=== PATIENT | male | born 1995 | race African-American/Black ===

== ENCOUNTER 2017-10-21 12:16 | Emergency (ER) | payer OTHER ==
[2017-10-21] MEDS ORDERED: NORCO, ANEXSIA 5/325MG TABLET (HYDROcodone/ACETAMINOPHEN) As Ordered (12:38)
== END 2017-10-21 15:45 | disposition home or self-care (01) ==
LOC: M ED 12:16
DX: S60.042A Contusion of left ring finger without damage to nail, initial encounter (principal); S60.415A Abrasion of left ring finger, initial encounter; W23.1XXA Caught, crushed, jammed, or pinched between stationary objects, initial encounter; Y92.139 Unspecified place military base as the place of occurrence of the external cause; Z87.891 Personal history of nicotine dependence
CPT/HCPCS: 73140

== ENCOUNTER 2017-12-26 21:06 | Emergency (ER) | payer OTHER ==
[2017-12-26 22:10] LABS: KETONE, URINE AUTO RFX NEGATIVE (NEGATIVE); LEUKOCYTE ESTERASE UR AUTO RFX NEGATIVE (NEGATIVE); MUCUS, URINE RFX SMALL (NEGATIVE); NITRITE, URINE AUTO RFX NEGATIVE (NEGATIVE); RBC, URINE AUTO RFX 1 /HPF (0-3); SPECIFIC GRAVITY UR AUTO RFX 1.028 (1.002-1.035); SQUAM EPITHELIAL CELL UR AURFX 0 /HPF (0-6); WBC, URINE AUTO RFX 2 /HPF (0-3)
[2017-12-26] MEDS: AZITHROMYCIN 250 MG TAB PO (23:09)
[2017-12-26] MEDS: cefTRIAXone SOD 250 MG VIAL (J0696) IM (23:09)
[2017-12-26 23:30] LABS: CHLAMYDIA DNA AMPLIFICATION POSITIVE (NEGATIVE); GC DNA AMPLIFICATION NEGATIVE (NEGATIVE)
[2017-12-28 10:28] LABS: HEPATITIS B SURFACE ANTIBODY POSITIVE (POSITIVE)
[2017-12-28 10:38] LABS: HEPATITIS B SURFACE ANTIGEN NEGATIVE (NEGATIVE)
[2017-12-28 11:04] LABS: HEPATITIS C VIRUS ABY INDEX 0.1 INDEX (<0.8)
[2017-12-28 11:06] LABS: HIV 1&2 SCREEN CENTAUR NEGATIVE (NEGATIVE)
== END 2017-12-26 23:15 | disposition home or self-care (01) ==
LOC: M ED 21:06
DX: Z20.2 Contact with and (suspected) exposure to infections with a predominantly sexual mode of transmission (principal)
CPT/HCPCS: J0696

== ENCOUNTER 2019-12-18 16:05 | Emergency (ER) | payer OTHER ==
[2019-12-18] MEDS ORDERED: ONDANSETRON 4MG/2ML VIAL As Ordered ONE (16:34)
[2019-12-18] MEDS ORDERED: diphenhydrAMINE 50MG/ML VIAL (J1200) As Ordered ONE (16:35)
[2019-12-18] MEDS ORDERED: KETOROLAC 30 MG/ML 1ML VIAL As Ordered ONE (16:35)
[2020-01-13 17:28] LABS: BASO % 0.3 % (0.0-1.0); EOS # 0.2 10^3/uL (0.0-0.5); EOS % 2.1 % (0.0-3.0); HEMATOCRIT 46.1 % (42.0-52.0); HEMOGLOBIN 15.9 g/dl (13.5-17.5); LYMPH # 2.6 10^3/uL (1.5-5.0); LYMPH % 37.5 % (24.0-44.0); MEAN CORPUSCULAR HEMOGLOBIN 29.4 pg (27.0-33.0); MEAN CORPUSCULAR HGB CONC 34.5 g/dl (32.0-36.5); MEAN CORPUSCULAR VOLUME 85.4 fl (80.0-96.0); MONO # 0.7 10^3/uL (0.0-0.8); MONO % 9.6 % (0.0-5.0); NEUTROPHILS # 3.5 10^3/uL (1.5-8.5); NEUTROPHILS % 50.2 % (36.0-66.0); PLATELET COUNT, AUTOMATED 268 10^3/uL (150-450)
[2020-01-13 17:29] LABS: ERYTHROCYTE SEDIMENTATION RATE 4 mm/hr (0-15)
[2020-01-24 10:09] LABS: GLUCOSE, FASTING 90 MG/DL (70-100)
[2020-01-24 10:10] LABS: ALT/SGPT 40 IU/L (0-32); BILIRUBIN,DIRECT < 0.1 MG/DL (0.0-0.2); BILIRUBIN,TOTAL 0.3 MG/DL (0.2-1.0); BLOOD UREA NITROGEN 10 MG/DL (7-18); CARBON DIOXIDE LEVEL 28 mmol/L (20-29); CHLORIDE LEVEL 107 MEQ/L (98-107); GLOMERULAR FILTRATION RATE > 60.0 (>60); POTASSIUM SERUM 4.5 MEQ/L (3.5-5.1); SODIUM LEVEL 140 MEQ/L (136-145); TOTAL PROTEIN 7.7 GM/DL (6.4-8.2)
[2020-01-24 10:11] LABS: ALBUMIN 3.8 GM/DL (3.2-5.2); C REACTIVE PROTEIN QUANTITATIV < 0.30 MG/DL (0.00-0.30); MAGNESIUM LEVEL 1.9 MG/DL (1.8-2.4)
--- NOTE | 2020-01-29 17:59 | REP ---
HEAD CT WITHOUT CONTRAST HISTORY: Migraines x2 weeks. This report was delayed due to a protracted episode of computer network disruption experienced by this facility. FINDINGS: Preliminary digital pin maker radiograph is unremarkable. Bone window settings demonstrate an intact bony calvarium. Visualized paranasal sinuses are clear. No intraorbital abnormality is seen. The lateral, third, and fourth ventricles are normal in size and position. Hickey-white differentiation pattern is intake. Incidental note is made of a 10 mm subarachnoid cyst in the superior cerebellar cistern region just below the tentorium. This is felt to be of no clinical significance. There is no evidence of intracranial hemorrhage, mass, infarction, extra-axial fluid collection, or midline shift. IMPRESSION: No acute intracranial abnormality. MTDD
== END 2019-12-18 18:55 | disposition home or self-care (01) ==
LOC: M ED 16:05
DX: G43.909 Migraine, unspecified, not intractable, without status migrainosus (principal); F17.200 Nicotine dependence, unspecified, uncomplicated
CPT/HCPCS: 70450; 80048; 80076; 83735; 85025; 85652; 86140; 96361; 96374; 99283; J1200; J1885; J2405

== ENCOUNTER → 2019-12-26 | Emergency (ER) | payer OTHER ==
[~2019-12-26] MED LIST: METOCLOPRAMIDE INJ 10MG/2ML VIAL (J2765 PER 1) As Ordered ONE; METOCLOPRAMIDE INJ 10MG/2ML VIAL (J2765 PER 1) ONE; PENI500T PO; diphenhydrAMINE 50MG/ML VIAL (J1200) As Ordered ONE; diphenhydrAMINE 50MG/ML VIAL (J1200) ONE
[2020-01-22 19:55] LABS: MEAN CORPUSCULAR HEMOGLOBIN 29.9 pg (27.0-33.0); MEAN CORPUSCULAR VOLUME 87.7 fl (80.0-96.0); PLATELET COUNT, AUTOMATED 252 10^3/uL (150-450); RED BLOOD COUNT 5.36 10^6/uL (4.30-6.10); WHITE BLOOD COUNT 7.2 10^3/uL (4.0-10.0)
[2020-02-14 13:48] LABS: BLOOD UREA NITROGEN 12 MG/DL (7-18); CALCIUM LEVEL 9.3 MG/DL (8.5-10.1); CARBON DIOXIDE LEVEL 32 MEQ/L (21-32); CHLORIDE LEVEL 107 MEQ/L (98-107); CREATININE FOR GFR 1.12 MG/DL (0.70-1.30); ETHYL ALCOHOL (ETHANOL) < 0.003 % (0.000-0.010); GLOMERULAR FILTRATION RATE > 60.0 (>60); GLUCOSE, FASTING 88 MG/DL (70-100); MAGNESIUM LEVEL 2.1 MG/DL (1.8-2.4); POTASSIUM SERUM 4.5 MEQ/L (3.5-5.1); SODIUM LEVEL 141 MEQ/L (136-145)
== END | disposition home or self-care (01) ==
LOC: M ED 16:29
DX: R51 Headache (principal); Z79.899 Other long term (current) drug therapy
CPT/HCPCS: 70450; 80048; 83735; 85027; 96361; 96374; 96375; 99284; G0480; J1200; J2765

== ENCOUNTER 2020-01-09 13:30 | Emergency (ER) | payer OTHER ==
--- NOTE | 2020-02-01 19:46 | ECGEPIP ---
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
[2020-02-21 11:11] LABS: INR 0.95; PARTIAL THROMBOPLASTIN TIME 26.1 SECONDS (24.2-38.5); PROTHROMBIN TIME 12.9 SECONDS (12.5-14.3)
[2020-02-23 12:58] LABS: BASO % 0.4 % (0.0-1.0); EOS # 0.1 10^3/uL (0.0-0.5); EOS % 1.9 % (0.0-3.0); HEMATOCRIT 45.1 % (42.0-52.0); HEMOGLOBIN 15.4 g/dl (13.5-17.5); LYMPH # 2.6 10^3/uL (1.5-5.0); LYMPH % 35.9 % (24.0-44.0); MEAN CORPUSCULAR HEMOGLOBIN 29.3 pg (27.0-33.0); MEAN CORPUSCULAR HGB CONC 34.1 g/dl (32.0-36.5); MEAN CORPUSCULAR VOLUME 85.9 fl (80.0-96.0); MONO # 0.8 10^3/uL (0.0-0.8); MONO % 10.3 % (0.0-5.0); NEUTROPHILS # 3.7 10^3/uL (1.5-8.5); NEUTROPHILS % 51.2 % (36.0-66.0); PLATELET COUNT, AUTOMATED 247 10^3/uL (150-450); RED BLOOD COUNT 5.25 10^6/uL (4.30-6.10); WHITE BLOOD COUNT 7.3 10^3/uL (4.0-10.0)
[2020-04-01 16:16] LABS: BLOOD UREA NITROGEN 12 MG/DL (7-18); CALCIUM LEVEL 8.7 MG/DL (8.5-10.1); CARBON DIOXIDE LEVEL 28 MEQ/L (21-32); CHLORIDE LEVEL 110 MEQ/L (98-107); CK-MB VALUE MASS 1.2 NG/ML (<3.6); CPK CREATINE PHOSPHOKINASE 450 U/L (39-308); CREATININE FOR GFR 1.02 MG/DL (0.70-1.30); GLOMERULAR FILTRATION RATE > 60.0 (>60); GLUCOSE, FASTING 92 MG/DL (70-100); MAGNESIUM LEVEL 2.3 MG/DL (1.8-2.4); MB/CK RELATIVE INDEX 0.27 (< OR =4); POTASSIUM SERUM 4.5 MEQ/L (3.5-5.1); SODIUM LEVEL 139 MEQ/L (136-145)
== END 2020-01-09 20:00 | disposition home or self-care (01) ==
LOC: M ED 13:30
DX: G44.001 Cluster headache syndrome, unspecified, intractable (principal); Z20.2 Contact with and (suspected) exposure to infections with a predominantly sexual mode of transmission; I44.0 Atrioventricular block, first degree; R94.31 Abnormal electrocardiogram [ECG] [EKG]

== ENCOUNTER 2020-02-14 20:41 | Emergency (ER) | payer OTHER ==
[~2020-02-14] VITALS: Ht 182.9 cm; Wt 108.2 kg
[2020-02-14 20:41] VITALS: BP 132/74
[2020-02-14] MEDS ORDERED: PENI500T PO (22:07)
[2020-02-14] MEDS ORDERED: PENICILLIN V POTASSIUM 500 MG TAB PO ONE (22:15)
[2020-02-14] MEDS ORDERED: ACETAMINOPHEN 325 MG TAB PO ONE (22:15)
== END 2020-02-14 22:17 | disposition home or self-care (01) ==
LOC: M ED 20:41
DX: J02.9 Acute pharyngitis, unspecified (principal); F17.200 Nicotine dependence, unspecified, uncomplicated

== ENCOUNTER 2020-08-10 10:05 | Emergency (ER) | payer OTHER, SELFPAY ==
[~2020-08-10] VITALS: Ht 182.9 cm; Wt 104.0 kg
[~2020-08-10 10:05] MED LIST changes: -METOCLOPRAMIDE INJ 10MG/2ML VIAL (J2765 PER 1) As Ordered ONE; -METOCLOPRAMIDE INJ 10MG/2ML VIAL (J2765 PER 1) ONE; -diphenhydrAMINE 50MG/ML VIAL (J1200) As Ordered ONE; -diphenhydrAMINE 50MG/ML VIAL (J1200) ONE
[2020-08-10] MEDS ORDERED: KETOROLAC 30 MG/ML 1ML VIAL IV ONE (11:25)
[2020-08-10] MEDS ORDERED: NS 1,000 ML IV ONE (11:25)
[2020-08-10 12:06] LABS: BASO % 0.2 % (0.0-1.0); EOS # 0.1 10^3/uL (0.0-0.5); EOS % 1.1 % (0.0-3.0); HEMATOCRIT 46.8 % (42.0-52.0); HEMOGLOBIN 15.9 g/dl (13.5-17.5); LYMPH # 2.1 10^3/uL (1.5-5.0); MEAN CORPUSCULAR HEMOGLOBIN 29.3 pg (27.0-33.0); MEAN CORPUSCULAR VOLUME 86.3 fl (80.0-96.0); MONO # 0.5 10^3/uL (0.0-0.8); MONO % 8.1 % (2.0-8.0); NEUTROPHILS # 3.7 10^3/uL (1.5-8.5); NEUTROPHILS % 57.4 % (36.0-66.0); PLATELET COUNT, AUTOMATED 246 10^3/uL (150-450); RED BLOOD COUNT 5.42 10^6/uL (4.30-6.10); WHITE BLOOD COUNT 6.4 10^3/uL (4.0-10.0)
[2020-08-10 12:26] LABS: BLOOD UREA NITROGEN 12 MG/DL (7-18); CALCIUM LEVEL 9.2 MG/DL (8.5-10.1); CARBON DIOXIDE LEVEL 29 MEQ/L (21-32); CHLORIDE LEVEL 107 MEQ/L (98-107); CREATININE FOR GFR 0.98 MG/DL (0.70-1.30); GLOMERULAR FILTRATION RATE > 60.0 (>60); GLUCOSE, FASTING 90 MG/DL (70-100); POTASSIUM SERUM 4.4 MEQ/L (3.5-5.1); SODIUM LEVEL 140 MEQ/L (136-145)
[2020-08-10 12:38] LABS: ERYTHROCYTE SEDIMENTATION RATE 3 mm/hr (0-15)
[2020-08-10] MEDS ORDERED: PRED20TA PO (13:34)
[2020-08-10] MEDS ORDERED: IMIT6KIT SC (13:34)
[2020-08-10 14:06] VITALS: BP 138/72
--- NOTE | 2020-08-12 07:59 | ECGEPIP ---
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 Order Number: [id number] Reading MD: Sydney White Measurements Intervals [place] Rate: 48 P: 22 UT: 184 QRS: 35 QRSD: 88 T: 46 QT: 410 QTc: 366 Interpretive Statements Sinus bradycardia decreased rate 01/09/20 Electronically Signed on 08-12-2020 7:59:20 EDT by Sydney White
== END 2020-08-10 14:07 | disposition home or self-care (01) ==
LOC: M ED 10:05
DX: G43.909 Migraine, unspecified, not intractable, without status migrainosus (principal); R00.1 Bradycardia, unspecified
CPT/HCPCS: 80048; 85025; 85652; 93005; 96361; 96374; 99284; J1885

== ENCOUNTER 2021-02-20 15:10 | Emergency (ER) | payer SELFPAY ==
[~2021-02-20] VITALS: Ht 182.9 cm; Wt 98.0 kg
[2021-02-20 15:10] VITALS: BP 130/85
[~2021-02-20 15:10] MED LIST changes: +IMIT6KIT SC; +PRED20TA PO
== END 2021-02-20 21:10 | disposition left against medical advice (07) ==
LOC: M ED 15:10
DX: Z53.21 Procedure and treatment not carried out due to patient leaving prior to being seen by health care provider (principal)

== ENCOUNTER 2021-05-23 14:03 | Emergency (ER) | payer SELFPAY ==
[~2021-05-23] VITALS: Ht 182.9 cm; Wt 96.4 kg
[2021-05-23] MEDS ORDERED: KETOROLAC 30 MG/ML 1ML VIAL IV ONE (16:30)
[2021-05-23] MEDS ORDERED: ONDANSETRON 4MG/2ML VIAL IV ONE (16:30)
[2021-05-23] MEDS ORDERED: NS 1,000 ML IV ONE (16:30)
--- NOTE | 2021-05-23 16:46 | REP ---
INDICATION: Abdominal Pain COMPARISON: None. TECHNIQUE: PA and lateral. FINDINGS: The mediastinum and cardiac silhouette are normal. Perihilar and lower lobe opacities consistent with multifocal pneumonia versus Covid-19 pulmonary disease. No obvious effusion. No pneumothorax. The skeletal structures are intact and normal. IMPRESSION: Multifocal opacities. Differential diagnosis includes but is not limited to pneumonia and COVID-19 pulmonary disease. <Electronically signed by Surjit Hernandez > 05/23/21 [id number]
[2021-05-23 17:54] LABS: ALBUMIN 3.7 GM/DL (3.2-5.2); BILIRUBIN,DIRECT 0.2 MG/DL (0.0-0.2); BILIRUBIN,TOTAL 0.7 MG/DL (0.2-1.0); C REACTIVE PROTEIN QUANTITATIV 9.13 MG/DL (0.00-0.30); TOTAL PROTEIN 8.2 GM/DL (6.4-8.2)
[2021-05-23 17:58] LABS: BASO % 0.1 % (0.0-1.0); EOS # 0.1 10^3/uL (0.0-0.5); EOS % 0.4 % (0.0-3.0); HEMATOCRIT 46.6 % (42.0-52.0); HEMOGLOBIN 15.8 g/dl (13.5-17.5); LYMPH # 2.1 10^3/uL (1.5-5.0); LYMPH % 15.3 % (24.0-44.0); MEAN CORPUSCULAR HEMOGLOBIN 28.9 pg (27.0-33.0); MEAN CORPUSCULAR HGB CONC 33.9 g/dl (32.0-36.5); MEAN CORPUSCULAR VOLUME 85.3 fl (80.0-96.0); MONO # 1.1 10^3/uL (0.0-0.8); NEUTROPHILS # 10.2 10^3/uL (1.5-8.5); NEUTROPHILS % 75.9 % (36.0-66.0); PLATELET COUNT, AUTOMATED 266 10^3/uL (150-450); RED BLOOD COUNT 5.46 10^6/uL (4.30-6.10); WHITE BLOOD COUNT 13.5 10^3/uL (4.0-10.0)
[2021-05-23 18:01] LABS: RSV AMPLIFICATION NEGATIVE (NEGATIVE)
[2021-05-23] MEDS ORDERED: ISOVUE-370 76% 100ML VIAL As Ordered ONE (18:01)
[2021-05-23] MEDS ORDERED: MORPHINE 4 MG/ML 1ML VIAL/SYRINGE (J2270) IV ONE (18:05)
[2021-05-23 18:43] LABS: ERYTHROCYTE SEDIMENTATION RATE 15 mm/hr (0-15)
--- NOTE | 2021-05-23 19:28 | REPVR ---
PROCEDURE INFORMATION: Exam: CTA Chest With Contrast Exam date and time: 05/23/2021 6:20 PM Age: 25 years old Clinical indication: Shortness of breath; Additional info: SOB TECHNIQUE: Imaging protocol: Computed tomographic angiography of the chest with contrast. 3D rendering (Not supervised by radiologist): MIP and/or 3D reconstructed images were created by the technologist. Radiation optimization: All CT scans at this facility use at least one of these dose optimization techniques: automated exposure control; mA and/or kV adjustment per patient size (includes targeted exams where dose is matched to clinical indication); or iterative reconstruction. Contrast material: ISOVUE 370; Contrast volume: 100 ml; Contrast route: INTRAVENOUS (IV); COMPARISON: CR Chest, 2 view PA, Lat 05/23/2021 4:30 PM FINDINGS: Pulmonary arteries: There are no pulmonary emboli. Aorta: There is no aortic dissection or aneurysm. Lungs: Dense bibasilar airspace infiltrates with air bronchograms consistent with multifocal pneumonitis. Pleural spaces: Unremarkable. No pneumothorax. No pleural effusion. Heart: Unremarkable. No cardiomegaly. No pericardial effusion. Lymph nodes: Unremarkable. No enlarged lymph nodes. Bones/joints: Unremarkable. No acute fracture. Soft tissues: Unremarkable. IMPRESSION: 1. Dense bibasilar airspace infiltrates with air bronchograms consistent with multifocal pneumonitis. 2. There is no aortic dissection or aneurysm. 3. There are no pulmonary emboli. Electronically signed by: Pako Zuñiga On 05/23/2021 19:27:50 PM
--- NOTE | 2021-05-23 19:32 | REPVR ---
PROCEDURE INFORMATION: Exam: CT Abdomen And Pelvis With Contrast Exam date and time: 05/23/2021 6:20 PM Age: 25 years old Clinical indication: Other: SOB TECHNIQUE: Imaging protocol: Computed tomography of the abdomen and pelvis with contrast. Radiation optimization: All CT scans at this facility use at least one of these dose optimization techniques: automated exposure control; mA and/or kV adjustment per patient size (includes targeted exams where dose is matched to clinical indication); or iterative reconstruction. Contrast material: ISOVUE 370; Contrast volume: 100 ml; Contrast route: INTRAVENOUS (IV); COMPARISON: CR Chest, 2 view PA, Lat 05/23/2021 4:30 PM FINDINGS: Lungs: Bibasilar airspace parenchymal opacities Liver: There is a diffuse heterogeneous decrease in hepatic parenchymal density predominantly affecting the posterior right hepatic lobe, consistent with steatosis. Gallbladder and bile ducts: Normal. No calcified stones. No ductal dilation. Pancreas: Normal. No ductal dilation. Spleen: Normal. No splenomegaly. Adrenal glands: Normal. No mass. Kidneys and ureters: Normal. No hydronephrosis. Stomach and bowel: Unremarkable. No obstruction. No mucosal thickening. Appendix: No evidence of appendicitis. Intraperitoneal space: Unremarkable. No free air. No significant fluid collection. Vasculature: Unremarkable. No abdominal aortic aneurysm. Lymph nodes: Unremarkable. No enlarged lymph nodes. Urinary bladder: Unremarkable as visualized. Reproductive: Unremarkable as visualized. Bones/joints: Unremarkable. No acute fracture. Soft tissues: Unremarkable. IMPRESSION: 1. There is a diffuse heterogeneous decrease in hepatic parenchymal density predominantly affecting the posterior right hepatic lobe, consistent with steatosis. 2. No acute findings. Electronically signed by: Pako Zuñiga On 05/23/2021 19:32:36 PM
[2021-05-23] MEDS ORDERED: ZITHTAB PO (20:21)
[2021-05-23] MEDS ORDERED: CEFD300C PO (20:21)
[2021-05-23] MEDS ORDERED: CEFDINIR 300 MG CAP (OMNICEF) PO ONE (20:25)
[2021-05-23] MEDS ORDERED: AZITHROMYCIN 250MG TABLET PO ONE (20:25)
[2021-05-23 20:29] VITALS: BP 126/74
--- NOTE | 2021-05-25 07:41 | ECGEPIP ---
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
== END 2021-05-23 20:55 | disposition home or self-care (01) ==
LOC: M ED 14:03
DX: J18.9 Pneumonia, unspecified organism (principal); R10.11 Right upper quadrant pain; G43.909 Migraine, unspecified, not intractable, without status migrainosus; F12.10 Cannabis abuse, uncomplicated
CPT/HCPCS: 71046; 71275; 74177; 80047; 80076; 82150; 83605; 83690; 85025; 85652; 86140; 87631; 93005; 96361; 96374; 99284; J2270; Q9967

== ENCOUNTER 2021-06-27 16:29 | Emergency (ER) | payer MEDICAID, SELFPAY ==
[~2021-06-27] VITALS: Ht 182.9 cm; Wt 98.8 kg
[~2021-06-27 16:29] MED LIST changes: +CEFD300C PO; +ZITHTAB PO
[2021-06-27 19:51] LABS: GC DNA AMPLIFICATION NEGATIVE (NEGATIVE)
[2021-06-27] MEDS ORDERED: DOXY-443 PO (19:55)
[2021-06-27] MEDS ORDERED: DOXYCYCLINE HYCLATE 100MG TABLET PO ONE (19:55)
[2021-06-27 20:06] VITALS: BP 131/61
== END 2021-06-27 20:08 | disposition home or self-care (01) ==
LOC: M ED 16:29
DX: A56.2 Chlamydial infection of genitourinary tract, unspecified (principal); F17.200 Nicotine dependence, unspecified, uncomplicated; F12.10 Cannabis abuse, uncomplicated

== ENCOUNTER 2022-05-27 23:05 | Emergency (ER) | payer OTHER ==
[~2022-05-27] VITALS: Ht 182.9 cm; Wt 101.4 kg
[~2022-05-27 23:05] MED LIST changes: +DOXY-443 PO
[2022-05-28] MEDS ORDERED: RABIES IMMUNE GLOBULIN 1500 INTERNATIONAL UNIT/5ML VIAL IM.IMMUN ONE ×2 (01:30→01:35)
[2022-05-28] MEDS ORDERED: RABIES VACCINE HUMAN 2.5 INTERNATIONAL UNITS/ML VIAL IM ONE (01:30)
[2022-05-28] MEDS ORDERED: RABIES IMMUNE GLOBULIN 300 INTERNATIONAL UNITS/1ML VIAL IM.IMMUN ONE (01:35)
[2022-05-28] MEDS ORDERED: AMOX875T2 PO (01:35)
[2022-05-28 02:29] VITALS: BP 132/64
== END 2022-05-28 02:34 | disposition home or self-care (01) ==
LOC: M ED 23:05
DX: S61.253A Open bite of left middle finger without damage to nail, initial encounter (principal); W55.01XA Bitten by cat, initial encounter; Y92.096 Garden or yard of other non-institutional residence as the place of occurrence of the external cause; Y93.89 Activity, other specified; Z20.3 Contact with and (suspected) exposure to rabies